=== PATIENT | female | born 1970 | race Caucasian/White ===

== ENCOUNTER → 2021-03-19 12:48 | Outpatient (CLI) | payer OTHER, SELFPAY ==
--- NOTE | 2021-03-19 12:50 | DI.RAD.S_ITS ---
PROCEDURE: XR PELVIS 1-2V INDICATIONS: Missing [place]agu[place] piece at IUD removal TECHNIQUE: 1 view(s) of the pelvis acquired. COMPARISON: None. FINDINGS: Bones: No fractures or dislocations. No suspicious bony lesions. Soft tissues: Visualized bowel gas pattern is normal. No suspicious soft tissue calcifications. IMPRESSION: Normal AP pelvis Dictated by: Marquez Lynn M.D. on 03/19/2021 at 14:14 Approved by: Marquez Lynn M.D. on 03/19/2021 at 14:15
== END ==
PROVIDERS: PCP Family Medicine; Referring Provider Obstetrics & Gynecology; Visit Provider Obstetrics & Gynecology
DX: T83.39XA Other mechanical complication of intrauterine contraceptive device, initial encounter (principal)
CPT/HCPCS: 72170

== ENCOUNTER 2023-04-21 15:30 | Emergency (ER) | payer OTHER, SELFPAY ==
[2023-04-21 15:43] VITALS: BP 139/83; PULSE 63; RESP 18; TEMP 36.7; O2SAT 100; BMI 25.8
--- NOTE | 2023-04-21 15:48 | DI.RAD.S_ITS ---
PROCEDURE: XR CHEST 1V INDICATIONS: chest pain TECHNIQUE: One view of the chest was acquired. COMPARISON: None. FINDINGS: Surgical changes and devices: None. Lungs and pleura: Lungs are clear. No pleural effusions or pneumothorax. Mediastinum: Mediastinal contours appear normal. Heart size is normal. Bones and chest wall: No suspicious bony lesions. Overlying soft tissues appear unremarkable. IMPRESSION: No acute cardiopulmonary process. Dictated by: Esa Dawson M.D. on 04/21/2023 at 16:23 Approved by: Esa Dawson M.D. on 04/21/2023 at 16:23
[2023-04-21 16:26] LABS: Add Manual Diff / Slide Review NO; Basophils Absolute Auto 0 /uL (0-100); Basophils Percent Auto 0.4 % (0-2); Eosinophils Absolute Auto 100 /uL (0-450); Eosinophils Percent Auto 0.8 % (2-4); Hematocrit 38.3 % (36-46); Hemoglobin 13.5 g/dL (12.0-16.0); Lymphocytes Absolute Auto 1100 /uL (1100-4500); Lymphocytes Percent Auto 12.3 % (25-40); Mean Corpuscular HGB Conc 35.1 % (30-36); Mean Corpuscular Hemoglobin 32.3 PG (26-34); Mean Corpuscular Volume 92.1 fL (80-100); Monocytes Absolute Auto 700 /uL (0-900); Monocytes Percent Auto 7.1 % (3-14); Neutrophils Absolute Auto 7300 /uL (1500-7000); Neutrophils Percent Auto 79.4 % (50-75); Platelet Count 309 X10^3/uL (150-400); Red Blood Cell Count 4.16 X10^6/uL (4.0-5.2); Red Cell Distribution Width 13.5 % (11.6-14.8); White Blood Cell Count 9.2 X10^3/uL (4.5-11.0)
[2023-04-21 16:29] LABS: INR 1.1 (0.9-1.3); Prothrombin Time 12.3 SECONDS (10.1-12.7)
[2023-04-21 16:31] LABS: PTT Partial Thromboplastin Tim 24 SECONDS (26-36)
[2023-04-21 16:33] LABS: Alanine Aminotransferase 25 IU/L (<35); Albumin 4.5 g/dL (3.5-5.0); Albumin Globulin Ratio 1.4 (1.0-2.8); Alkaline Phosphatase 39 U/L (38-126); Aspartate Aminotransferase 35 IU/L (14-36); BUN Creatinine Ratio 22.7 (6-22); Bilirubin Total 1.4 mg/dL (0.2-1.3); Blood Urea Nitrogen 15 mg/dL (7-17); Carbon Dioxide 22 mmol/L (22-32); Chloride 106 mmol/L (98-107); Creatine Kinase 75 U/L (30-135); Estimated Glomerular Filt Rate > 60 mL/min (>60); Globulin 3.3 g/dL (1.7-4.1); Glucose 93 mg/dL (70-100); HEMOLYSIS 89 (0-50); Lipase 162 U/L (23-300); Magnesium 1.7 mg/dL (1.6-2.3); Potassium 4.5 mmol/L (3.4-5.1); Sodium 137 mmol/L (137-145); Total Protein 7.8 g/dL (6.3-8.2)
[2023-04-21 16:38] LABS: COVID19 -Nasal RAPID Negative (Negative)
[2023-04-21 16:44] LABS: Troponin I < 0.012 ng/mL (0.01-0.034)
[2023-04-21 19:15] VITALS: BP 142/88; PULSE 66; O2SAT 98
--- NOTE | 2023-04-21 19:19 | PC.NURSE ---
Patient states she is feeling much better than when she first arrived to the ER. BP 145/88 sitting up. Denies having new pain today.
--- NOTE | 2023-04-21 19:34 | ED_ITS ---
HPI - General Adult General Chief complaint: Weakness Stated complaint: high HR/BP 86/66/post exercise Time Seen by Provider: 04/21/23 18:07 Source: patient Mode of arrival: Ambulatory History of Present Illness HPI narrative: 52-year-old woman with a history of hypothyroidism, hypertension and depression currently being seen at physical therapy for back and hip pain. she notes that this morning she had a rather emotional morning, did not have much to eat and while at physical therapy started on the bike rather than the treadmill, added a bit more weight than usual and had an episode where she simply became too fatigued continue her work out. Her therapist noted that she was pale, diaphoretic hypotensive in the physical therapy office and recommended she come to the emergency department for further evaluation. Patient does note that her father does have a history of coronary artery disease and is post three-vessel bypass. She herself has never had cardiac issues or events. By the time she presents to the emergency department blood pressure has improved and she is feeling back to her baseline. She notes that she did have an episode of emesis with the severe hypotension but is not currently reporting chest pain, shortness are breath, lower extremity edema, headache or any neurologic complaints. Related Data Home Medications Medication Instructions Recorded Confirmed levothyroxine 75 mcg tablet 75 mcg PO DAILY 03/19/21 03/19/21 (Synthroid) lisinopril 20 mg tablet 20 mg PO DAILY 03/19/21 03/19/21 venlafaxine 37.5 mg 37.5 mg PO DAILY 03/19/21 03/19/21 capsule,extended release 24 hr Allergies Allergy/AdvReac Type Severity Reaction Status Date / Time Penicillins AdvReac Not Verified 04/21/23 15:43 sure-was told Review of Systems Review of Systems Narrative: Pertinent positive and negative findings as per HPI Patient History Medical History (Updated 04/21/23 @ 19:54 by Spring Gallego MD) Depression Hypertension Hypothyroid Social History Smoking Status: Former smoker Smoking Status: Former smoker alcohol intake frequency: holidays/special occasions only Substance Use Type: marijuana Exam Initial Vital Signs Initial Vital Signs: Vital Signs Temperature 98.1 F 04/21/23 15:43 Pulse Rate 63 04/21/23 15:43 Respiratory Rate 18 04/21/23 15:43 Blood Pressure 139/83 04/21/23 15:43 Pulse Oximetry 100 04/21/23 15:43 Oxygen Delivery Method Room Air 04/21/23 15:43 General: Healthy appearing, in no acute distress. Able to give a complete and coherent history. Well-nourished well-developed HEENT: Moist mucous membranes, normal sclera with reactive pupils, Respiratory: Lungs are clear to auscultation, no wheezing no rales no rhonchi. Full and symmetrical air movement Cardiac: Regular rate and rhythm no murmurs no bruits Abdomen: Soft, nontender, good bowel tones, no flank pain Skin: Warm and dry, no rashes Neurologic: Grossly neurologically intact with no obvious asymmetries or abnormalities Extremities: No trauma, well perfused Psych: Cooperative, appropriate insight and affect Course Orders Ordered: ED Orders 04/21/23 15:48 XR chest 1V Stat 04/21/23 15:55 EKG-12 Lead Stat 04/21/23 16:07 Complete Blood Count AUTO DIFF Stat Comprehensive Metabolic Panel Stat Lipase Stat Magnesium Stat PTT Partial Thromboplastin [place] Stat Prothrombin Time INR Stat Troponin & CK Cardiac Panel Stat 04/21/23 16:15 COVID19 -Nasal RAPID Stat Discontinued Medications Aspirin (Aspirin 81 Mg Chew Tab) 324 mg PO NOW ONE Stop: 04/21/23 15:49 Last Admin: 04/21/23 19:08 Dose: Not Given Documented By: PARTHA Vital Signs Vital signs: Vital Signs - 8 hr 04/21/23 15:43 04/21/23 19:15 04/21/23 19:15 Temperature 98.1 F Pulse Rate 63 66 Respiratory Rate 18 Blood Pressure 139/83 142/88 H Pulse Oximetry 100 98 Oxygen Delivery Method Room Air Medical Decision Making Lab Data 04/21/23 16:07 04/21/23 16:07 Labs: Lab Results 04/21/23 04/21/23 04/21/23 Range/Units 16:07 16:07 16:07 WBC 9.2 (4.5-11.0) X10^3/uL RBC 4.16 (4.0-5.2) X10^6/uL Hgb 13.5 (12.0-16.0) g/dL Hct 38.3 (36-46) % MCV 92.1 (80-100) fL MCH 32.3 (26-34) PG MCHC 35.1 (30-36) % RDW 13.5 (11.6-14.8) % Plt Count 309 (150-400) X10^3/uL Neut % (Auto) 79.4 H (50-75) % Lymph % (Auto) 12.3 L (25-40) % Crenshaw % (Auto) 7.1 (3-14) % Eos % (Auto) 0.8 L (2-4) % Baso % (Auto) 0.4 (0-2) % Neut # (Auto) 7300 H (3073-1039) /uL Lymph # (Auto) 1100 (6551-1819) /uL Crenshaw # (Auto) 700 (0-900) /uL Eos # (Auto) 100 (0-450) /uL Baso # (Auto) 0 (0-100) /uL PT 12.3 (10.1-12.7) SECONDS INR 1.1 (0.9-1.3) APTT 24 L (26-36) SECONDS Sodium 137 (137-145) mmol/L Potassium 4.5 (3.4-5.1) mmol/L Chloride 106 (98-107) mmol/L Carbon Dioxide 22 (22-32) mmol/L BUN 15 (7-17) mg/dL Creatinine 0.66 (0.52-1.04) mg/dL Estimated GFR > 60 (>60) mL/min BUN/Creatinine Ratio 22.7 H (6-22) Glucose 93 (70-100) mg/dL Calcium 9.0 (8.4-10.2) mg/dL Magnesium 1.7 (1.6-2.3) mg/dL Total Bilirubin 1.4 H (0.2-1.3) mg/dL AST 35 (14-36) IU/L ALT 25 (<35) IU/L Alkaline Phosphatase 39 (38-126) U/L Total Creatine Kinase 75 (30-135) U/L Troponin I < 0.012 (0.01-0.034) ng/mL Total Protein 7.8 (6.3-8.2) g/dL Albumin 4.5 (3.5-5.0) g/dL Globulin 3.3 (1.7-4.1) g/dL Albumin/Globulin Ratio 1.4 (1.0-2.8) Lipase 162 (23-300) U/L SARS-CoV-2 (PCR) (Negative) 04/21/23 Range/Units 16:15 WBC (4.5-11.0) X10^3/uL RBC (4.0-5.2) X10^6/uL Hgb (12.0-16.0) g/dL Hct (36-46) % MCV (80-100) fL MCH (26-34) PG MCHC (30-36) % RDW (11.6-14.8) % Plt Count (150-400) X10^3/uL Neut % (Auto) (50-75) % Lymph % (Auto) (25-40) % Crenshaw % (Auto) (3-14) % Eos % (Auto) (2-4) % Baso % (Auto) (0-2) % Neut # (Auto) (6266-6126) /uL Lymph # (Auto) (5451-4177) /uL Crenshaw # (Auto) (0-900) /uL Eos # (Auto) (0-450) /uL Baso # (Auto) (0-100) /uL PT (10.1-12.7) SECONDS INR (0.9-1.3) APTT (26-36) SECONDS Sodium (137-145) mmol/L Potassium (3.4-5.1) mmol/L Chloride (98-107) mmol/L Carbon Dioxide (22-32) mmol/L BUN (7-17) mg/dL Creatinine (0.52-1.04) mg/dL Estimated GFR (>60) mL/min BUN/Creatinine Ratio (6-22) Glucose (70-100) mg/dL Calcium (8.4-10.2) mg/dL Magnesium (1.6-2.3) mg/dL Total Bilirubin (0.2-1.3) mg/dL AST (14-36) IU/L ALT (<35) IU/L Alkaline Phosphatase (38-126) U/L Total Creatine Kinase (30-135) U/L Troponin I (0.01-0.034) ng/mL Total Protein (6.3-8.2) g/dL Albumin (3.5-5.0) g/dL Globulin (1.7-4.1) g/dL Albumin/Globulin Ratio (1.0-2.8) Lipase (23-300) U/L SARS-CoV-2 (PCR) Negative (Negative) MDM Narrative Medical decision making narrative: CC: Hypotensive reaction with diaphoresis and nausea while at physical therapy Complicating co-morbidities: Hypertension, depression, hypothyroidism, acute back and hip pain for which she is doing physical therapy Data collected from: patient, Differential considered: Vasovagal syncope, cardiac syncope, acute coronary syndrome, pulmonary embolism, acute anemia, severe hemorrhage either GI or vascular/aortic Exam documented above, pertinent findings include: Entirely benign Lab Test results independently reviewed as above. Pertinent findings: CBC is reassuring with no evidence of infection or acute anemia Chemistries are reassuring with bilirubin minimally elevated at 1.4 Troponin is unremarkable Lipase is reassuring Independently reviewed EKG sinus rhythm at a rate of 62 with normal intervals, normal axis and no acute ischemic changes Imaging studies independently reviewed: Chest x-ray is unremarkable with no evidence of cardiomegaly or infiltrates Re-evaluations: Patient is re-evaluated after lab studies are returned and is feeling back to her baseline. No evidence of orthostasis when standing Discussion: 52-year-old woman with what sounds very much like a vasovagal syncope episode during a workout earlier this morning. No chest pain or palpitations workup is unremarkable at this point I do not suspect acute coronary syndrome, cardiac rhythm abnormality or pulmonary embolism. I do not think that there is a life-threatening explanation that would require hospitalization, advanced imaging or additional workup at this time. All findings reviewed in detail with patient and her . Questions were answered and she is safe for discharge Discharge Plan Departure Patient Disposition: Home Clinical Impression: Syncope, vasovagal Instructions: DI for Syncope in Adults (Fainting) Activity Restrictions/Additional Instructions: Thank you for coming in today It sounds like a rather impressive episode with the low blood pressure, severe fatigue and the diaphoresis. Today's ER visit is absolutely appropriate. Your workup today was very reassuring. I do not see any evidence of heart attack, enlarged heart or cardiomyopathy, infection, anemia, electrolyte abnormalities, kidney dysfunction. You have been on telemetry while in the emergency department and your heart rhythm has been reassuring. I suspect that you had an episode of vasovagal syncope. I suspect that this was a ?1 off? type of event. I believe it is safe for you return to physical th erapy and your work outs but I would recommend small meals with protein at least 2 hours before your work out and a large glass of water within the hour prior to your work out. If you find that you are having recurrent symptoms such as these with exercise, you absolutely need follow-up with your primary care doctor. If you are having acute findings you need to return to the emergency department. Prescriptions: No Action levothyroxine [Synthroid] 75 mcg tablet 75 mcg PO DAILY lisinopril 20 mg tablet 20 mg PO DAILY venlafaxine 37.5 mg capsule,extended release 24hr 37.5 mg PO DAILY Referrals: Pravin Brannon DO [Primary Care Provider] - Stand Alone Forms: Patient Portal/API
[2023-04-21 20:04] VITALS: BP 160/87; PULSE 71; RESP 18; O2SAT 97
== END 2023-04-21 20:06 | disposition home or self-care (01) ==
PROVIDERS: Emergency Medicine; Emergency Provider Emergency Medicine; PCP Family Medicine
DX: R55 Syncope and collapse (principal); I95.9 Hypotension, unspecified; R11.0 Nausea; Z20.822 Contact with and (suspected) exposure to COVID-19
CPT/HCPCS: 71045; 80053; 82550; 83690; 83735; 84484; 85025; 85610; 85730; 87635; 93005; 99283; 99284; C9803